=== PATIENT | male | born 1975 | race Caucasian/White ===

== ENCOUNTER 2018-05-11 20:33 | Emergency (ER) | payer BC ==
[~2018-05-11] VITALS: Ht 190.5 cm; Wt 107.5 kg
[2018-05-11] MEDS ORDERED: normal saline 1000ML IV soln IV ONE (21:40)
[2018-05-11 21:51] LABS: ALANINE AMINOTRANSFERASE 30 U/L (12-78); ALBUMIN 3.9 G/DL (3.4-5.0); ALKALINE PHOSPHATASE 73 IU/L (46-116); ANION GAP 12 (8-16); ASPARTATE AMINO TRANSFERASE 18 U/L (10-37); BILIRUBIN,TOTAL 0.4 MG/DL (0.1-1.0); BLOOD UREA NITROGEN 14 MG/DL (7-18); BUN/CREATININE RATIO 14.4 (5.4-32.0); CALCIUM 8.9 MG/DL (8.5-10.1); CHLORIDE 101 MMOL/L (99-107); CREATININE 0.97 MG/DL (0.60-1.10); GLUCOSE 104 MG/DL (70-104); MAGNESIUM 1.8 MG/DL (1.5-2.4); POTASSIUM 3.6 MMOL/L (3.5-5.1); SODIUM 137 MMOL/L (135-145); TOTAL CARBON DIOXIDE 24.1 MMOL/L (24-32); TOTAL PROTEIN 7.8 G/DL (6.4-8.2); eGFR 86 ML/MIN
[2018-05-11 21:55] LABS: PARTIAL THROMBOPLASTIN TIME 27 SECONDS (22-32); PROTHROMBIN TIME 9.9 SECONDS (9.0-12.0)
--- NOTE | 2018-05-11 22:01 | NUR ---
LAB CALLED AND THERE WILL BE A DELAY ON RUNNING THE SW[facility] FOR FLU - RESULTS WILL BE AVAILABLE ABOUT AN HOUR FROM THE TIME OF THIS NOTE.
[2018-05-11 22:03] LABS: BASOPHILS % (AUTO) 0.3 % (0-1); EOSINOPHILS # (AUTO) 0.2 X10'3 (0-0.9); EOSINOPHILS % (AUTO) 3.6 % (0-6); HEMATOCRIT 46.3 % (42.0-52.0); HEMOGLOBIN 16.2 g/dl (14.0-17.9); LYMPHOCYTES # (AUTO) 0.6 X10'3 (1.1-4.8); LYMPHOCYTES % (AUTO) 9.7 % (21-51); MEAN CORPUSCULAR HEMOGLOBIN 32.9 PG (27.0-31.0); MEAN CORPUSCULAR HGB CONC 34.9 g/dL (33.0-36.5); MEAN CORPUSCULAR VOLUME 94.2 FL (78-98); MEAN PLATELET VOLUME 8.6 FL (7.4-10.4); MONOCYTES # (AUTO) 0.9 X10'3 (0-0.9); MONOCYTES % (AUTO) 14.8 % (2-12); NEUTROPHILS # (AUTO) 4.3 X10'3 (1.8-7.7); NEUTROPHILS % (AUTO) 71.6 % (42-75); PLATELET COUNT 209 X10'3 (140-440); RED BLOOD COUNT 4.92 X10'6 (4.70-6.10); RED CELL DISTRIBUTION WIDTH 12.6 % (11.5-14.5); WHITE BLOOD COUNT 6.1 X10'3 (4.5-11.0)
[2018-05-11] MEDS ORDERED: oseltamivir phos 75mg capsule PO ONE (23:35)
[2018-05-11] MEDS ORDERED: ALBU6.7H INH (23:37)
[2018-05-11] MEDS ORDERED: PRED20TA PO (23:37)
[2018-05-11] MEDS ORDERED: TAM75C PO (23:37)
[2018-05-11] MEDS ORDERED: GUAI-647 PO (23:37)
--- NOTE | 2018-05-12 00:41 | NUR ---
flu a positive isolation precautions for flu maintained
[2018-05-12 00:53] LABS: CLARITY,URINE CLEAR (Clear); COLOR,URINE YELLOW (Yellow); GLUCOSE, URINE NEGATIVE (Neg); KETONES,URINE NEGATIVE (Neg); LEUKOCYTE ESTERASE ,URINE NEGATIVE (Neg); NITRITES, URINE NEGATIVE (Neg); OCCULT BLOOD,URINE NEGATIVE (Neg); PROTEIN,URINE NEGATIVE (Neg); UROBILINOGEN,URINE 0.2 E.U/dL (0.2-1.0)
[2018-05-12 00:56] LABS: UA COLLECTION TYPE CLN CATCH MIDSTREAM
[2018-05-12 02:27] VITALS: BP 142/86
== END 2018-05-12 02:34 | disposition home or self-care (01) ==
LOC: ER 20:33
DX: J09.X2 Influenza due to identified novel influenza A virus with other respiratory manifestations (principal)
CPT/HCPCS: 36415; 71045; 80053; 81003; 83605; 83735; 84145; 85025; 85610; 85730; 87040; 87502; 87503; 99284; J7030

== ENCOUNTER 2023-10-12 14:32 | Emergency (ER) | payer BC ==
[~2023-10-12] VITALS: Ht 190.5 cm; Wt 104.5 kg
[~2023-10-12 14:32] MED LIST: ALBU6.7H14 INH
[2023-10-12 14:36] VITALS: BP 129/93; PULSE 67; O2SAT 98
[2023-10-12 15:29] VITALS: RESP 16
[2023-10-12 15:58] VITALS: TEMP 97.6
== END 2023-10-12 16:01 | disposition home or self-care (01) ==
LOC: ER 14:33
DX: T22.212A Burn of second degree of left forearm, initial encounter (principal); T31.0 Burns involving less than 10% of body surface; Z91.018 Allergy to other foods; Z79.899 Other long term (current) drug therapy; X19.XXXA Contact with other heat and hot substances, initial encounter; Y93.89 Activity, other specified; Y92.89 Other specified places as the place of occurrence of the external cause; Y99.8 Other external cause status
CPT/HCPCS: 16000; 99282; A6223; A6446; A6449